=== PATIENT | female | born 1965 | race Caucasian/White ===

== ENCOUNTER 2018-09-13 14:52 | Emergency (ER) | payer OTHER, SELFPAY ==
[2018-09-13 14:57] VITALS: BP 116/78; PULSE 82; RESP 20; TEMP 36.6; O2SAT 96
--- NOTE | 2018-09-13 14:58 | DI.RAD.S_ITS ---
PROCEDURE: XR ANKLE RT MIN 3V INDICATIONS: rt lateral pain/swelling after fall TECHNIQUE: 3 views of the ankle were acquired. COMPARISON: None. FINDINGS: Bones: There is a distal fibular fracture seen, which is at the level of the syndesmosis. There is mild widening of the ankle mortise. No additional fractures are detected. The talar dome demonstrates no shazia abnormality. No suspicious lytic or blastic lesions are seen. Soft tissues: Mild soft tissue swelling is seen. IMPRESSION: Distal fibular fracture, with widening of the ankle mortise. Dictated by: Paras Flaherty M.D. on 09/13/2018 at 14:50 Approved by: Paras Flaherty M.D. on 09/13/2018 at 14:51
[2018-09-13] MEDS: HYDROCODONE/ACET 5/325 TABLET 1 TAB PO ×2 (15:47→16:27)
[2018-09-13] MEDS: KETOROLAC 60 MG/2 ML VIAL IM (15:48)
[2018-09-13 15:49] VITALS: BP 106/60; PULSE 64; RESP 16; O2SAT 100
--- NOTE | 2018-09-13 15:55 | ED.LOWEXIN ---
HPI - Extremity Injury (Lower) <TERRY Randle - Last Filed: 09/13/18 17:53> General Chief Complaint: Extremity Injury, Lower Stated Complaint: Slipped and hurt rt ankle Time Seen by Provider: 09/13/18 15:26 Source: patient Mode of arrival: ambulatory Limitations: no limitations History of Present Illness HPI Narrative: The patient is a 52-year-old female active smoker with history of orthopedic surgery of her right foot who presents with a chief complaint of right ankle pain. She states she was playing with water balloons and slipped in her ankle rolled in. She felt a crack. She has not applied ice. She has not take anything for the pain. She denies any previous injury to her right ankle. Related Data Previous Rx's Medication Instructions Recorded hydrocodone-acetaminophen [Baker] 1 tab PO Q4-6H PRN #10 tab 09/13/18 Review of Systems <TERRY Randle - Last Filed: 09/13/18 17:53> Review of Systems GENERAL: Denies chills, fatigue, malaise, fever, sweats. HEENT: Denies sinus pain, ear pain, sore throat, difficulty swallowing, dizziness. RESPIRATORY: Denies dyspnea, cough, wheezing, hemoptysis, sputum. CARDIOVASCULAR: Denies chest pain, palpitations, orthopnea, edema, GASTROINTESTINAL: Denies nausea, vomiting, abdominal pain, diarrhea, constipation, melena. : Denies dysuria, frequency, incontinence, hematuria, urinary retention. MUSCULOSKELETAL: See HPI SKIN: See HPI NEUROLOGIC: Denies weakness, headache, numbness, change in speech, confusion, seizures, incoordination. PSYCHIATRIC: No concerning psychosocial issues. 12 point review of systems is negative except for those stated above PFSH <TERRY Randle - Last Filed: 09/13/18 17:53> Surgical History (Updated 09/13/18 @ 17:44 by TERRY Randle) History of orthopedic surgery (Acute) Social History Smoking Status: Current every day smoker Social History Smoking Status: Current every day smoker Exam <TERRY Randle - Last Filed: 09/13/18 17:53> Narrative Exam Narrative: GENERAL: This is a well-nourished, well-developed patient, appears uncomfortable HEAD: Atraumatic. Normocephalic. No temporal or scalp tenderness. EYES: Pupils equal round and reactive. Extraocular motions intact. No scleral icterus. No injection or drainage. ENT: Nose without bleeding, purulent drainage or septal hematoma. Throat without erythema, tonsillar hypertrophy or exudate. Uvula midline. Airway patent. NECK: Trachea midline. No JVD or lymphadenopathy. Supple, nontender, no meningeal signs. CARDIOVASCULAR: Regular rate and rhythm RESPIRATORY: No cough. No increased respiratory effort. No accessory muscle use. EXTREMITIES: Slight swelling noted lateral aspect of right ankle. Positive pedal pulses right foot. Capillary refill less than 2 seconds right foot. Pain to palpation right ankle. BACK: Nontender without deformity or crepitance. No flank tenderness. NEURO: AOx3. SKIN: Slight swelling and ecchymosis noted right ankle. Initial Vital Signs Initial Vital Signs: Vital Signs Temperature 97.8 F 09/13/18 14:57 Pulse Rate 82 09/13/18 14:57 Respiratory Rate 20 09/13/18 14:57 Blood Pressure 116/78 09/13/18 14:57 Pulse Oximetry 96 09/13/18 14:57 <Carol Gomes MD - Last Filed: 09/13/18 18:46> Initial Vital Signs Initial Vital Signs: Vital Signs Temperature 97.8 F 09/13/18 14:57 Pulse Rate 82 09/13/18 14:57 Respiratory Rate 20 09/13/18 14:57 Blood Pressure 116/78 09/13/18 14:57 Pulse Oximetry 96 09/13/18 14:57 Procedures <TERRY Randle - Last Filed: 09/13/18 17:53> Orthopedic Splinting/Casting Injury #1: Side: right Lower Extremity Injury Location: ankle Lower Extremity Immobilizer: posterior splint and Red wrap Other Orthopedic Equipment: crutches Post splinting neuro exam: intact Post splinting vascular exam: intact Placed by: Nursing Course <TERRY Randle - Last Filed: 09/13/18 17:53> Orders Ordered: ED Orders 09/13/18 14:58 XR ankle RT min 3V Stat Discontinued Medications Hydrocodone Bitart/Acetaminophen (Baker 5/325) 1 tab PO NOW ONE Stop: 09/13/18 15:31 Last Admin: 09/13/18 15:47 Dose: 1 tab Hydrocodone Bitart/Acetaminophen (Baker 5/325) 1 tab PO NOW ONE Stop: 09/13/18 16:12 Last Admin: 09/13/18 16:27 Dose: 1 tab Ketorolac Tromethamine (Toradol) 60 mg IM NOW ONE Stop: 09/13/18 15:31 Last Admin: 09/13/18 15:48 Dose: 60 mg Vital Signs - 8 hr 09/13/18 14:57 09/13/18 15:49 09/13/18 16:48 Temperature 97.8 F Pulse Rate 82 64 57 L Respiratory Rate 20 16 18 Blood Pressure 116/78 Blood Pressure [Right Arm] 106/60 107/70 Pulse Oximetry 96 100 100 <Carol Gomes MD - Last Filed: 09/13/18 18:46> Orders Ordered: ED Orders 09/13/18 14:58 XR ankle RT min 3V Stat Discontinued Medications Hydrocodone Bitart/Acetaminophen (Baker 5/325) 1 tab PO NOW ONE Stop: 09/13/18 15:31 Last Admin: 09/13/18 15:47 Dose: 1 tab Hydrocodone Bitart/Acetaminophen (Baker 5/325) 1 tab PO NOW ONE Stop: 09/13/18 16:12 Last Admin: 09/13/18 16:27 Dose: 1 tab Ketorolac Tromethamine (Toradol) 60 mg IM NOW ONE Stop: 09/13/18 15:31 Last Admin: 09/13/18 15:48 Dose: 60 mg Vital Signs - 8 hr 09/13/18 14:57 09/13/18 15:49 09/13/18 16:48 Temperature 97.8 F Pulse Rate 82 64 57 L Respiratory Rate 20 16 18 Blood Pressure 116/78 Blood Pressure [Right Arm] 106/60 107/70 Pulse Oximetry 96 100 100 MDM - Extremity Injury (Lower) <TERRY Randle - Last Filed: 09/13/18 17:53> Imaging Data X-ray: Radiologist's impression: [address] [address] XRay Report Signed Patient: Namita Sanchez RMR#: [id number] : 1965Acct:[id number] Age/Sex: 52 / FDate of Service: 09/13/18 Loc: ED Accession Number: [id number] Procedure: XR ankle RT min 3V Ordering Provider: Carol Gomes MD PROCEDURE: XR ANKLE RT MIN 3V INDICATIONS: rt lateral pain/swelling after fall TECHNIQUE: 3 views of the ankle were acquired. COMPARISON: None. FINDINGS: Bones: There is a distal fibular fracture seen, which is at the level of the syndesmosis. There is mild widening of the ankle mortise. No additional fractures are detected. The talar dome demonstrates no shazia abnormality. No suspicious lytic or blastic lesions are seen. Soft tissues: Mild soft tissue swelling is seen. IMPRESSION: Distal fibular fracture, with widening of the ankle mortise. Dictated by: Paras Flaherty M.D. on 09/13/2018 at 14:50 Approved by: Paras Flaherty M.D. on 09/13/2018 at 14:51 [facility] Narrative Medical decision making narrative: The patient is a 52-year-old female who presents with a chief complaint of right ankle pain. X-ray illustrated a distal fibula fracture. She is neurovascularly intact. She is placed in a splint as per procedural note. She was given Toradol as well as Baker for pain. I discussed at length follow up with her primary care provider as well as Orthopedics. She was given contact information for [facility]. Discussed at length rest ice compression elevation. Discussed return precautions of decreased circulation to toes. Patient was made nonweightbearing, and given crutches. No questions or concerns upon discharge. Discharge Plan Departure Patient Disposition: Home Clinical Impression: Fracture of distal end of fibula Qualifiers: Encounter type: initial encounter Fracture type: closed Fracture morphology: other fracture Laterality: right Qualified Code(s): S82.831A - Other fracture of upper and lower end of right fibula, initial encounter for closed fracture Discharge Date/Time: 09/13/18 17:14 Interventions: ED Discharge Assessment Last Done: 09/13/18 17:14 Instructions: How to Use Crutches, DI for Ankle Fracture, How To Perform RICE (Rest, Ice, Compress, Elevate), How to Take Care of Your Splint Activity Restrictions/Additional Instructions: Your x-ray shows a fracture. We have placed him in a splint may do nonweightbearing. I have given you a prescription of Baker. Be aware this could be sedating and constipating. I also suggest rest ice compression elevation. Please come back to the emergency department for any acute concerns such as decreased circulation to the toes. I have given you contact information for [facility]. You are able to follow up with Orthopedics of her choosing Prescriptions: New hydrocodone-acetaminophen [Baker] 5-325 mg tablet 1 tab PO Q4-6H PRN (Reason: pain) Qty: 10 RF: 0 Referrals: [facility] [Provider Group] Kadeem Mcbride MD [Primary Care Provider] -
[2018-09-13 16:48] VITALS: BP 107/70; PULSE 57; RESP 18; O2SAT 100
--- NOTE | 2018-09-13 17:45 | ED_ITS ---
HPI - Extremity Injury (Lower) <TERRY Randle - Last Filed: 09/13/18 17:53> General Chief Complaint: Extremity Injury, Lower Stated Complaint: Slipped and hurt rt ankle Time Seen by Provider: 09/13/18 15:26 Source: patient Mode of arrival: ambulatory Limitations: no limitations History of Present Illness HPI Narrative: The patient is a 52-year-old female active smoker with history of orthopedic surgery of her right foot who presents with a chief complaint of right ankle pain. She states she was playing with water balloons and slipped in her ankle rolled in. She felt a crack. She has not applied ice. She has not take anything for the pain. She denies any previous injury to her right ankle. Related Data Previous Rx's Medication Instructions Recorded hydrocodone-acetaminophen [Lonepine] 1 tab PO Q4-6H PRN #10 tab 09/13/18 Review of Systems <TERRY Randle - Last Filed: 09/13/18 17:53> Review of Systems GENERAL: Denies chills, fatigue, malaise, fever, sweats. HEENT: Denies sinus pain, ear pain, sore throat, difficulty swallowing, dizziness. RESPIRATORY: Denies dyspnea, cough, wheezing, hemoptysis, sputum. CARDIOVASCULAR: Denies chest pain, palpitations, orthopnea, edema, GASTROINTESTINAL: Denies nausea, vomiting, abdominal pain, diarrhea, constipation, melena. : Denies dysuria, frequency, incontinence, hematuria, urinary retention. MUSCULOSKELETAL: See HPI SKIN: See HPI NEUROLOGIC: Denies weakness, headache, numbness, change in speech, confusion, seizures, incoordination. PSYCHIATRIC: No concerning psychosocial issues. 12 point review of systems is negative except for those stated above PFSH <TERRY Randle - Last Filed: 09/13/18 17:53> Surgical History (Updated 09/13/18 @ 17:44 by TERRY Randle) History of orthopedic surgery (Acute) Social History Smoking Status: Current every day smoker Social History Smoking Status: Current every day smoker Exam <TERRY Randle - Last Filed: 09/13/18 17:53> Narrative Exam Narrative: GENERAL: This is a well-nourished, well-developed patient, appears uncomfortable HEAD: Atraumatic. Normocephalic. No temporal or scalp tenderness. EYES: Pupils equal round and reactive. Extraocular motions intact. No scleral icterus. No injection or drainage. ENT: Nose without bleeding, purulent drainage or septal hematoma. Throat without erythema, tonsillar hypertrophy or exudate. Uvula midline. Airway patent. NECK: Trachea midline. No JVD or lymphadenopathy. Supple, nontender, no meningeal signs. CARDIOVASCULAR: Regular rate and rhythm RESPIRATORY: No cough. No increased respiratory effort. No accessory muscle use. EXTREMITIES: Slight swelling noted lateral aspect of right ankle. Positive pedal pulses right foot. Capillary refill less than 2 seconds right foot. Pain to palpation right ankle. BACK: Nontender without deformity or crepitance. No flank tenderness. NEURO: AOx3. SKIN: Slight swelling and ecchymosis noted right ankle. Initial Vital Signs Initial Vital Signs: Vital Signs Temperature 97.8 F 09/13/18 14:57 Pulse Rate 82 09/13/18 14:57 Respiratory Rate 20 09/13/18 14:57 Blood Pressure 116/78 09/13/18 14:57 Pulse Oximetry 96 09/13/18 14:57 <Carol Gomes MD - Last Filed: 09/13/18 18:46> Initial Vital Signs Initial Vital Signs: Vital Signs Temperature 97.8 F 09/13/18 14:57 Pulse Rate 82 09/13/18 14:57 Respiratory Rate 20 09/13/18 14:57 Blood Pressure 116/78 09/13/18 14:57 Pulse Oximetry 96 09/13/18 14:57 Procedures <TERRY Randle - Last Filed: 09/13/18 17:53> Orthopedic Splinting/Casting Injury #1: Side: right Lower Extremity Injury Location: ankle Lower Extremity Immobilizer: posterior splint and Red wrap Other Orthopedic Equipment: crutches Post splinting neuro exam: intact Post splinting vascular exam: intact Placed by: Nursing Course <TERYR Randle - Last Filed: 09/13/18 17:53> Orders Ordered: ED Orders 09/13/18 14:58 XR ankle RT min 3V Stat Discontinued Medications Hydrocodone Bitart/Acetaminophen (Lonepine 5/325) 1 tab PO NOW ONE Stop: 09/13/18 15:31 Last Admin: 09/13/18 15:47 Dose: 1 tab Hydrocodone Bitart/Acetaminophen (Lonepine 5/325) 1 tab PO NOW ONE Stop: 09/13/18 16:12 Last Admin: 09/13/18 16:27 Dose: 1 tab Ketorolac Tromethamine (Toradol) 60 mg IM NOW ONE Stop: 09/13/18 15:31 Last Admin: 09/13/18 15:48 Dose: 60 mg Vital Signs - 8 hr 09/13/18 14:57 09/13/18 15:49 09/13/18 16:48 Temperature 97.8 F Pulse Rate 82 64 57 L Respiratory Rate 20 16 18 Blood Pressure 116/78 Blood Pressure [Right Arm] 106/60 107/70 Pulse Oximetry 96 100 100 <Carol Gomes MD - Last Filed: 09/13/18 18:46> Orders Ordered: ED Orders 09/13/18 14:58 XR ankle RT min 3V Stat Discontinued Medications Hydrocodone Bitart/Acetaminophen (Lonepine 5/325) 1 tab PO NOW ONE Stop: 09/13/18 15:31 Last Admin: 09/13/18 15:47 Dose: 1 tab Hydrocodone Bitart/Acetaminophen (Lonepine 5/325) 1 tab PO NOW ONE Stop: 09/13/18 16:12 Last Admin: 09/13/18 16:27 Dose: 1 tab Ketorolac Tromethamine (Toradol) 60 mg IM NOW ONE Stop: 09/13/18 15:31 Last Admin: 09/13/18 15:48 Dose: 60 mg Vital Signs - 8 hr 09/13/18 14:57 09/13/18 15:49 09/13/18 16:48 Temperature 97.8 F Pulse Rate 82 64 57 L Respiratory Rate 20 16 18 Blood Pressure 116/78 Blood Pressure [Right Arm] 106/60 107/70 Pulse Oximetry 96 100 100 MDM - Extremity Injury (Lower) <TERRY Randle - Last Filed: 09/13/18 17:53> Imaging Data X-ray: Radiologist's impression: [address] [address] XRay Report Signed Patient: Namita Sanchez RMR#: [id number] : 1965Acct:[id number] Age/Sex: 52 / FDate of Service: 09/13/18 Loc: ED Accession Number: [id number] Procedure: XR ankle RT min 3V Ordering Provider: Carol Gomes MD PROCEDURE: XR ANKLE RT MIN 3V INDICATIONS: rt lateral pain/swelling after fall TECHNIQUE: 3 views of the ankle were acquired. COMPARISON: None. FINDINGS: Bones: There is a distal fibular fracture seen, which is at the level of the syndesmosis. There is mild widening of the ankle mortise. No additional fractures are detected. The talar dome demonstrates no shazia abnormality. No suspicious lytic or blastic lesions are seen. Soft tissues: Mild soft tissue swelling is seen. IMPRESSION: Distal fibular fracture, with widening of the ankle mortise. Dictated by: Paras Flaherty M.D. on 09/13/2018 at 14:50 Approved by: Paras Flaherty M.D. on 09/13/2018 at 14:51 [facility] Narrative Medical decision making narrative: The patient is a 52-year-old female who presents with a chief complaint of right ankle pain. X-ray illustrated a distal fibula fracture. She is neurovascularly intact. She is placed in a splint as per procedural note. She was given Toradol as well as Lonepine for pain. I discussed at length follow up with her primary care provider as well as Orthop edics. She was given contact information for [facility]. Discussed at length rest ice compression elevation. Discussed return precautions of decreased circulation to toes. Patient was made nonweightbearing, and given crutches. No questions or concerns upon discharge. Discharge Plan Departure Patient Disposition: Home Clinical Impression: Fracture of distal end of fibula Qualifiers: Encounter type: initial encounter Fracture type: closed Fracture morphology: other fracture Laterality: right Qualified Code(s): S82.831A - Other fracture of upper and lower end of right fibula, initial encounter for closed fracture Discharge Date/Time: 09/13/18 17:14 Interventions: ED Discharge Assessment Last Done: 09/13/18 17:14 Instructions: How to Use Crutches, DI for Ankle Fracture, How To Perform RICE (Rest, Ice, Compress, Elevate), How to Take Care of Your Splint Activity Restrictions/Additional Instructions: Your x-ray shows a fracture. We have placed him in a splint may do nonweightbearing. I have given you a prescription of Lonepine. Be aware this could be sedating and constipating. I also suggest rest ice compression elevation. Please come back to the emergency department for any acute concerns such as decreased circulation to the toes. I have given you contact information for [facility]. You are able to follow up with Orthopedics of her choosing Prescriptions: New hydrocodone-acetaminophen [Lonepine] 5-325 mg tablet 1 tab PO Q4-6H PRN (Reason: pain) Qty: 10 RF: 0 Referrals: [facility] [Provider Group] Kadeem Mcbride MD [Primary Care Provider] -
== END 2018-09-13 17:14 | disposition home or self-care (01) ==
PROVIDERS: Emergency Provider Nurse Practitioner Family; PCP Family Medicine
DX: S82.831A Other fracture of upper and lower end of right fibula, initial encounter for closed fracture (principal); W18.49XA Other slipping, tripping and stumbling without falling, initial encounter
CPT/HCPCS: 29515; 73610; 96372; 99283; J1885

== ENCOUNTER 2018-09-15 07:41 | Day surgery (SDC) | payer OTHER, SELFPAY ==
--- NOTE | 2018-09-15 | DI.RAD.S_ITS ---
PROCEDURE: XR ANKLE RT MIN 1V INDICATIONS: FRACTURE REPAIR TECHNIQUE: 1 views of the ankle were acquired. COMPARISON: [facility], , XR ANKLE RT MIN 3V, 09/13/2018, 15:01. FINDINGS: An intraoperative fluoroscopy images demonstrate open reduction and internal fixation of distal fibular fracture with a surgical plate and multiple surgical screws in place. IMPRESSION: Open reduction and internal fixation of distal fibular fracture. Dictated by: Jacob Brooks M.D. on 09/15/2018 at 14:06 Approved by: Jacob Brooks M.D. on 09/15/2018 at 14:07
[2018-09-15 08:14] VITALS: BP 100/63; PULSE 58; RESP 15; TEMP 36.4; O2SAT 98; BMI 25.0
[2018-09-15] MEDS: LACTATED RINGERS 1,000 ML 42 ML IV ×2 (08:45→11:54)
--- NOTE | 2018-09-15 09:53 | PM.HP.1 ---
History of Present Illness Date Patient Seen: 09/15/18 Time Patient Seen: 09:53 Chief complaint: [id number] ORIF R ANKLE LATERAL MALLEOLUS Narrative: Ms. Sanchez is a 52 yo F with twisting injury to her right ankle and sustained displaced lateral malleolus fracture with mortise widening. I discussed treatment options with patient with risks and benefits. Due to the displaced nature of her ankle fracture with ankle mortise widening, I recommended surgical treatment and patient understands and would like to proceed. Patient History Medical History (Updated 09/15/18 @ 08:13 by Sugar Benjamin RN) Ankle fracture, right (Acute) Arm numbness left (Acute) Back pain (Acute) Lung disease (Acute) Numbness in left leg (Acute) Smoker (Acute) Surgical History (Updated 09/13/18 @ 17:44 by TERRY Randle) History of orthopedic surgery (Acute) Social History household members: spouse Smoking Status: Current every day smoker Family & Social History Social History: household members spouse Tobacco & Substance use: Smoking Status Current every day smoker Meds Home Medications Medication Instructions Recorded Confirmed Type hydrocodone-acetaminophen [[place]] 1 tab PO Q4-6H PRN #10 tab 09/13/18 Rx varenicline [Chantix] 1 mg PO BID 09/15/18 09/15/18 History Allergies Allergy/AdvReac Type Severity Reaction Status Date / Time No Known Drug Allergies Allergy Verified 09/15/18 08:11 Exam Vital Signs (past 8 hours): - 09/15/18 08:14 Temperature 97.6 F Pulse Rate 58 L Respiratory Rate 15 Blood Pressure 100/63 Pulse Oximetry 98 Oxygen Delivery Method Room Air Extrem Other: Right ankle skin intact with swelling and pain on the lateral aspect Assessment & Plan Assessment & Plan narrative: 52 yo F with displaced right ankle fracture. Patient is scheduled for right ankle open reduction and internal fixation.
--- NOTE | 2018-09-15 09:56 | P.HP_ITS ---
History of Present Illness Date Patient Seen: 09/15/18 Time Patient Seen: 09:53 Chief complaint: [id number] ORIF R ANKLE LATERAL MALLEOLUS Narrative: Ms. Sanchez is a 52 yo F with twisting injury to her right ankle and sustained displaced lateral malleolus fracture with mortise widening. I discussed treatment options with patient with risks and benefits. Due to the displaced nature of her ankle fracture with ankle mortise widening, I recommended surgical treatment and patient understands and would like to proceed. Patient History Medical History (Updated 09/15/18 @ 08:13 by Sugar Benjamin RN) Ankle fracture, right (Acute) Arm numbness left (Acute) Back pain (Acute) Lung disease (Acute) Numbness in left leg (Acute) Smoker (Acute) Surgical History (Updated 09/13/18 @ 17:44 by TERRY Randle) History of orthopedic surgery (Acute) Social History household members: spouse Smoking Status: Current every day smoker Family & Social History Social History: household members spouse Tobacco & Substance use: Smoking Status Current every day smoker Meds Home Medications Medication Instructions Recorded Confirmed Type hydrocodone-acetaminophen [[place]ced[place]] 1 tab PO Q4-6H PRN #10 tab 09/13/18 Rx varenicline [Chantix] 1 mg PO BID 09/15/18 09/15/18 History Allergies Allergy/AdvReac Type Severity Reaction Status Date / Time No Known Drug Allergies Allergy Verified 09/15/18 08:11 Exam Vital Signs (past 8 hours): - 09/15/18 08:14 Temperature 97.6 F Pulse Rate 58 L Respiratory Rate 15 Blood Pressure 100/63 Pulse Oximetry 98 Oxygen Delivery Method Room Air Extrem Other: Right ankle skin intact with swelling and pain on the lateral aspect Assessment & Plan Assessment & Plan narrative: 52 yo F with displaced right ankle fracture. Patient is scheduled for right ankle open reduction and internal fixation.
[2018-09-15] MEDS: fentaNYL 100 MCG/2 ML INJ 50 MCG IV ×2 (10:07→10:23)
[2018-09-15] MEDS: MIDAZOLAM 2 MG/2 ML VIAL IV (10:07)
--- NOTE | 2018-09-15 10:13 | SUR.PREOP ---
Continuous VS/monitor and storage bin tender prior to medication, O2 at 2LNP in prep for regional block.
--- NOTE | 2018-09-15 10:34 | SUR.PREOP ---
1023 2d dose of fentanyl in prep for block per Dr. Montes. Patient awake, talking. Turned to left side for procedure (BP cuff on upper arm). 1031 Procedure complete; Tolerated well. Turned to back after procedure. Resp unlabored throughout, talking with family.
[2018-09-15] MEDS: CEFAZOLIN 2 GM/100 ML FROZ.PIGGY IV (10:36)
--- NOTE | 2018-09-15 11:04 | SUR.OPER ---
Supine on padded OR bed, head on pillow, arms secured on padded arm boards at <90 degrees abduction, legs uncrossed, safety belt at waist, tape over blanket over lower left leg, right leg drapped free with gel bump under right buttock. .
[2018-09-15] MEDS: BUPIVACAINE 0.5% (PF) VIAL 30 ML INJ (11:13)
--- NOTE | 2018-09-15 11:51 | PM.OP.1 ---
Operative Date/Time/Diagnoses Date of procedure: 09/15/18 Time of procedure: 10:51 Pre-op diagnosis: 1. right ankle lateral malleolus fx Post-op diagnosis: same Procedure & Clinicians Procedure: Right ankle lateral malleolus open reduction internal fixation Same procedure as scheduled: Yes Indications: Ms. Sanchez sustained a twisting injury to her right ankle with displaced fracture to her lateral malleolus. After discussing risks and benefits of treatment options, patient elected to proceed with surgery. Surgeon: Deshaun Greene [employer] Servicer: Sasha Stratton Click Yes if Unassisted: No Anesthesia Type: General Operative Notes Closure Type: primary Specimen(s): none sent Prosthetic devices, grafts, tissues, transplants, or devices: Synthes small frag 1/3 tubular plate, cancellous and cortical screws x 7, one washer Estimated Blood Loss (mL): 5 Blood products transfused: none Procedure in detail: Patient was identified in the preoperative area. Informed consent was obtained and placed in the chart. Surgical site was marked. Patient was then taken to the operating room. Prophylactic antibiotic was given less than half our prior to skin incision. General anesthesia was administered. A tourniquet was placed on patient's right upper thigh. Patient's right lower extremity was prepped and draped in a sterile fashion from the toes all the way to the tourniquet. Time-out was performed at this time. Patient's right leg was then exsanguinated using the Esmarch. Tourniquet was then inflated to 250 mm Hg. A lateral incision was made directly over the fracture of the lateral malleolus. The fracture site was exposed. The tibial talar joint was also inspected after the fracture site was exposed. There were several small pieces of loose fragments of bone inside the joint. The loose fragments was removed using pickups suction. There are also several small area with cartilage injury on the talus from the traumatic fracture dislocation. The fracture hematoma was debrided using the curette and Peck. A lobster claw reduction clamp was used to reduce the fracture. A lag screw was placed across the fracture from posterior to anterior direction by drilling the proximal cortex with a 3.5 drill bit and finishing the distal cortex using a 2.5 drill bit. After measuring with depth gauge a fully-threaded cortical screw was placed using a washer. The fracture was held in the reduced position while a 1/3 tubular plate was placed on the lateral aspect of the lateral malleolus. The plate was stabilized to the lateral malleolus while the plate was held in the reduced position by drilling and filling the holes of the 1/3 tubular plate. Depth gauge was used to measure the length of the screws. After placement of all the hardware AP and lateral C-arm imaging was taken to confirm placement of the hardware as well as reduction of the fracture. The ankle fracture was stabilized by placing the plate and screw combination. Total 6 screws were placed threw the plate. AP and lateral x-ray was used to confirm the reduction and maintenance of the reduction of the fracture. Excellent reduction and maintenance of the reduction was confirmed with the x-ray imaging intraoperatively. The wound was then closed using a 2-0 Vicryl and skin piper. Patient's right ankle was then placed into a short-leg posterior splint. Patient was then transferred to recovery room in stable condition. Patient will be instructed to be nonweightbearing to her right ankle for 4 weeks. Patient is instructed to return to clinic in 2 weeks for suture removal and also placed into a short-leg cast. Patient can start weight-bearing in the CAM walker 4 weeks after surgery. Complications: none Condition: stable Disposition: PACU Plan for aftercare: Discharge to home
[2018-09-15 12:08] VITALS: BP 103/61; PULSE 64; RESP 16; TEMP 36.9; O2SAT 91
[2018-09-15 12:13] VITALS: BP 95/61; PULSE 56; RESP 10; O2SAT 93
[2018-09-15 12:19] VITALS: BP 94/60; PULSE 63; RESP 16; O2SAT 95
[2018-09-15 12:30] VITALS: BP 99/65; PULSE 64; RESP 12; TEMP 36.3; O2SAT 98
[2018-09-15] MEDS: OXYCODONE/ACETAMINOPHEN 5/325 TABLET 1 TAB PO (12:40)
[2018-09-15 13:02] VITALS: BP 103/67; PULSE 60; RESP 16; TEMP 36.2; O2SAT 98
== END 2018-09-15 13:31 | disposition home or self-care (01) ==
PROVIDERS: PCP Family Medicine; Visit Provider Orthopaedic Surgery Orthopaedic Surgery of the Spine
PROC: 0SSF04Z Reposition Right Ankle Joint with Internal Fixation Device, Open Approach (ICD-10-PCS; CPT 27792; principal; 2018-09-15 09:45)
DX: S82.61XA Displaced fracture of lateral malleolus of right fibula, initial encounter for closed fracture (principal); G89.18 Other acute postprocedural pain; X50.1XXA Overexertion from prolonged static or awkward postures, initial encounter; F17.210 Nicotine dependence, cigarettes, uncomplicated
CPT/HCPCS: 27792; 64445; 64450; 73610; 76000; J0690; J1100; J2250; J2405; J2704; J3010